=== PATIENT | female | born 1965 | race African-American/Black ===

== ENCOUNTER → 2018-01-08 | Outpatient (CLI) | payer OTHER ==
[~2018-01-08] MED LIST: IBUPROFEN 400400 M1 PO; NOHOMEMEDICATIONS
== END ==
LOC: RAD 01:10
DX: Z12.31 Encounter for screening mammogram for malignant neoplasm of breast (principal)

== ENCOUNTER → 2019-05-20 | Outpatient (CLI) | payer OTHER | LOC: RAD 08:32 | DX: Z12.31 Encounter for screening mammogram for malignant neoplasm of breast (principal) ==